=== PATIENT | male | born 1935 | race Caucasian/White ===

== ENCOUNTER → 2017-06-17 | Outpatient (CLI) | payer OTHER ==
[~2017-06-17] MED LIST: CIPROFLOXACIN500 MG PO; ECOTRIN81 MG PO; FUROSEMIDE20 MG PO; KLOR-CON 1010 MEQ PO; LOPRESSOR25 MG PO; OCUVITE1 TA1 PO; PRAVASTATIN SOD80 MG PO; XANAX0.25 MG PO
[2017-06-17 09:10] LABS: BASO % 0.4 % (0.0-1.0); EOS # 0.2 10*3/uL (0.0-0.4); EOS % 2.7 % (1.0-4.0); HEMATOCRIT 41.5 % (42.0-52.0); LYMPH # 2.6 10*3/uL (1.3-4.4); MEAN CORPUSCULAR HGB CONC 33.7 g/dl (33.0-37.0); MONO # 0.6 10*3/uL (0.1-1.0); MONO % 8.8 % (3.0-9.0); NEUT # 3.4 10*3/uL (2.3-7.9); NEUT % 49.5 % (47.0-73.0); PLATELET COUNT AUTOMATED 209 10*3/uL (130-400); RED BLOOD COUNT 4.51 10*6/uL (4.50-5.90); RED CELL DISTRI WIDTH 12.5 % (0-14.5); WHITE BLOOD COUNT 6.9 10*3/uL (4.8-10.8)
[2017-06-17 09:25] LABS: ALBUMIN 3.6 gm/dl (3.1-4.5); ALKALINE PHOSPHATASE 60 U/L (45-117); BUN 18 mg/dl (7-24); CHLORIDE 105 mmol/L (98-107); CHOLESTEROL 229 mg/dL (<200); HDL CHOLESTEROL 46 mg/dl (40-60); LDL CHOLESTEROL 155 mg/dL (9-159); POTASSIUM 4.1 mmol/L (3.5-5.1); SGOT/AST 22 IU/L (3-35); SGPT/ALT 24 U/L (12-78); SODIUM 140 mmol/L (136-145); TOTAL PROTEIN 6.9 gm/dL (6.4-8.2); TRIGLYCERIDES 141 mg/dl (<150); VLDL CHOLESTEROL 28 mg/dL (6-40)
[2017-06-17 10:23] LABS: BILIRUBIN NEGATIVE (NEGATIVE); BLOOD NEGATIVE (NEGATIVE); CLARITY SL CLOUDY (CLEAR); COLOR YELLOW (YELLOW); GLUCOSE NEGATIVE (NEGATIVE); KETONE TRACE (NEGATIVE); LEUKO ESTERASE TRACE (NEGATIVE); NITRITE POSITIVE (NEGATIVE); UROBILINOGEN 0.2 E.U./dl (0.2-1.0)
[2017-06-17 10:35] LABS: BACTERIA 2+; RBC 0-2 rbc/hpf (0-2)
== END | disposition home or self-care (01) ==
LOC: LAB 08:26
PROVIDERS: Internal Medicine
DX: Z12.5 Encounter for screening for malignant neoplasm of prostate (principal); N40.1 Benign prostatic hyperplasia with lower urinary tract symptoms; M17.11 Unilateral primary osteoarthritis, right knee; M25.461 Effusion, right knee; I25.10 Atherosclerotic heart disease of native coronary artery without angina pectoris; R53.83 Other fatigue; E78.5 Hyperlipidemia, unspecified; R41.3 Other amnesia

== ENCOUNTER → 2017-09-30 | Outpatient (CLI) | payer OTHER ==
[2017-10-01 15:08] LABS: ANTIPARIETAL CELL ANTIBODY 9.3 Units (0.0-20.0)
[2017-10-04 16:09] LABS: INTRINSIC FACTOR ABS, SERUM 4.9 AU/mL (0.0-1.1)
== END | disposition home or self-care (01) ==
LOC: LAB 11:04
PROVIDERS: Internal Medicine
DX: M62.81 Muscle weakness (generalized) (principal); E53.8 Deficiency of other specified B group vitamins

== ENCOUNTER → 2018-03-31 | Outpatient (CLI) | payer OTHER ==
[2018-03-31 10:22] LABS: BILIRUBIN NEGATIVE (NEGATIVE); BLOOD TRACE-INTACT (NEGATIVE); CLARITY SL CLOUDY (CLEAR); COLOR YELLOW (YELLOW); GLUCOSE NEGATIVE (NEGATIVE); KETONE NEGATIVE (NEGATIVE); LEUKO ESTERASE 1+ (NEGATIVE); NITRITE POSITIVE (NEGATIVE); SPECIFIC GRAVITY 1.025 (1.005-1.030); UROBILINOGEN 0.2 E.U./dl (0.2-1.0)
[2018-03-31 10:51] LABS: BACTERIA 2+
[2018-04-01 16:05] LABS: ANTIPARIETAL CELL ANTIBODY 7.6 Units (0.0-20.0)
[2018-04-04 16:08] LABS: INTRINSIC FACTOR ABS, SERUM 5.9 AU/mL (0.0-1.1)
== END | disposition home or self-care (01) ==
LOC: LAB 09:49
PROVIDERS: Internal Medicine
DX: E53.8 Deficiency of other specified B group vitamins (principal); N40.1 Benign prostatic hyperplasia with lower urinary tract symptoms; E78.5 Hyperlipidemia, unspecified; Z79.899 Other long term (current) drug therapy

== ENCOUNTER → 2018-06-30 | Outpatient (CLI) | payer OTHER ==
[2018-06-30 09:24] LABS: BILIRUBIN NEGATIVE (NEGATIVE); BLOOD NEGATIVE (NEGATIVE); CLARITY CLOUDY (CLEAR); COLOR YELLOW (YELLOW); GLUCOSE NEGATIVE (NEGATIVE); KETONE NEGATIVE (NEGATIVE); LEUKO ESTERASE NEGATIVE (NEGATIVE); NITRITE POSITIVE (NEGATIVE); UROBILINOGEN 0.2 E.U./dl (0.2-1.0)
[2018-06-30 09:32] LABS: BASO # 0.1 10*3/uL (0.0-0.1); BASO % 0.8 % (0.0-1.0); EOS # 0.3 10*3/uL (0.0-0.4); EOS % 4.5 % (1.0-4.0); HEMATOCRIT 42.2 % (42.0-52.0); HEMOGLOBIN 13.7 g/dl (14.0-18.0); LYMPH # 2.4 10*3/uL (1.3-4.4); LYMPH % 31.4 % (27.0-41.0); MEAN CELL VOLUME 95.3 fl (80.0-94.0); MEAN CORPUSCULAR HGB 30.9 pg (27.0-31.0); MEAN CORPUSCULAR HGB CONC 32.5 g/dl (33.0-37.0); MONO # 0.6 10*3/uL (0.1-1.0); MONO % 8.6 % (3.0-9.0); PLATELET COUNT AUTOMATED 203 10*3/uL (130-400); RED BLOOD COUNT 4.43 10*6/uL (4.50-5.90); RED CELL DISTRI WIDTH 12.4 % (0-14.5); WHITE BLOOD COUNT 7.5 10*3/uL (4.8-10.8)
[2018-06-30 10:03] LABS: ALBUMIN 3.7 gm/dl (3.1-4.5); BUN 18 mg/dl (7-24); CHLORIDE 104 mmol/L (98-107); CHOLESTEROL 182 mg/dL (<200); POTASSIUM 4.1 mmol/L (3.5-5.1); SODIUM 140 mmol/L (136-145)
[2018-06-30 10:14] LABS: ALKALINE PHOSPHATASE 63 U/L (45-117); CREATININE 1.02 mg/dL (0.70-1.30); HDL CHOLESTEROL 45 mg/dl (40-60); LDL CHOLESTEROL 107 mg/dL (9-159); SGOT/AST 24 IU/L (3-35); SGPT/ALT 31 U/L (12-78); TRIGLYCERIDES 148 mg/dl (<150); VLDL CHOLESTEROL 30 mg/dL (6-40)
[2018-06-30 10:30] LABS: BACTERIA 3+
== END | disposition home or self-care (01) ==
LOC: LAB 08:55
PROVIDERS: Internal Medicine
DX: I25.10 Atherosclerotic heart disease of native coronary artery without angina pectoris (principal); I10 Essential (primary) hypertension; E78.5 Hyperlipidemia, unspecified

== ENCOUNTER → 2019-01-26 | Outpatient (CLI) | payer OTHER ==
[2019-01-26 10:50] LABS: CHOLESTEROL 183 mg/dL (<200); HDL CHOLESTEROL 44 mg/dl (40-60); LDL CHOLESTEROL 116 mg/dL (9-159); TRIGLYCERIDES 117 mg/dl (<150); VLDL CHOLESTEROL 23 mg/dL (6-40)
== END | disposition home or self-care (01) ==
LOC: LAB 08:47
PROVIDERS: Internal Medicine
DX: E11.9 Type 2 diabetes mellitus without complications (principal); I25.10 Atherosclerotic heart disease of native coronary artery without angina pectoris

== ENCOUNTER → 2019-11-03 | Outpatient (CLI) | payer OTHER ==
[2019-11-03 10:17] LABS: BASO # 0.1 10*3/uL (0.0-0.1); BASO % 0.7 % (0.0-1.0); EOS # 0.2 10*3/uL (0.0-0.4); EOS % 2.8 % (1.0-4.0); HEMATOCRIT 43.6 % (42.0-52.0); HEMOGLOBIN 13.9 g/dl (14.0-18.0); LYMPH # 2.2 10*3/uL (1.3-4.4); MEAN CELL VOLUME 96.2 fl (80.0-94.0); MEAN CORPUSCULAR HGB 30.7 pg (27.0-31.0); MEAN CORPUSCULAR HGB CONC 31.9 g/dl (33.0-37.0); MEAN PLATELET VOLUME 9.1 fl (9.6-12.3); MONO # 0.7 10*3/uL (0.1-1.0); MONO % 9.1 % (3.0-9.0); NEUT # 4.2 10*3/uL (2.3-7.9); NEUT % 56.9 % (47.0-73.0); PLATELET COUNT AUTOMATED 207 10*3/uL (130-400); RED BLOOD COUNT 4.53 10*6/uL (4.50-5.90); RED CELL DISTRI WIDTH 12.3 % (0-14.5); WHITE BLOOD COUNT 7.5 10*3/uL (4.8-10.8)
[2019-11-03 10:41] LABS: ALBUMIN 3.7 gm/dl (3.1-4.5); ALKALINE PHOSPHATASE 69 U/L (45-117); BUN 16 mg/dl (7-24); CHLORIDE 106 mmol/L (98-107); CHOLESTEROL 162 mg/dL (<200); CREATININE 1.03 mg/dL (0.70-1.30); HDL CHOLESTEROL 54 mg/dl (40-60); LDL CHOLESTEROL 78 mg/dL (9-159); POTASSIUM 3.8 mmol/L (3.5-5.1); SGOT/AST 21 IU/L (3-35); SGPT/ALT 26 U/L (12-78); SODIUM 140 mmol/L (136-145); TOTAL PROTEIN 7.1 gm/dL (6.4-8.2); TRIGLYCERIDES 149 mg/dl (<150); VLDL CHOLESTEROL 30 mg/dL (6-40)
== END | disposition home or self-care (01) ==
LOC: LAB 09:34
PROVIDERS: Internal Medicine
DX: Z12.5 Encounter for screening for malignant neoplasm of prostate (principal); I10 Essential (primary) hypertension; E11.9 Type 2 diabetes mellitus without complications; E78.49 Other hyperlipidemia

== ENCOUNTER 2020-03-18 14:40 | Emergency (ER) | payer OTHER ==
[~2020-03-18] VITALS: Ht 182.8 cm; Wt 81.6 kg
[2020-03-18 14:57] VITALS: BP 141/80
[2020-03-18 15:33] LABS: BASO # 0.1 10*3/uL (0.0-0.1); BASO % 0.7 % (0.0-1.0); EOS # 0.1 10*3/uL (0.0-0.4); EOS % 1.3 % (1.0-4.0); HEMATOCRIT 44.6 % (42.0-52.0); LYMPH # 1.4 10*3/uL (1.3-4.4); MEAN CELL VOLUME 92.9 fl (80.0-94.0); MEAN CORPUSCULAR HGB 30.4 pg (27.0-31.0); MEAN CORPUSCULAR HGB CONC 32.7 g/dl (33.0-37.0); MEAN PLATELET VOLUME 9.2 fl (9.6-12.3); MONO # 0.5 10*3/uL (0.1-1.0); MONO % 7.6 % (3.0-9.0); NEUT # 4.9 10*3/uL (2.3-7.9); NEUT % 69.8 % (47.0-73.0); PLATELET COUNT AUTOMATED 211 10*3/uL (130-400); RED CELL DISTRI WIDTH 12.2 % (0-14.5)
[2020-03-18 15:44] LABS: ACT PARTIAL THROMBO TIME 26.9 SECONDS (20.0-32.1)
[2020-03-18 15:49] LABS: ALBUMIN 3.8 gm/dl (3.1-4.5); ALKALINE PHOSPHATASE 59 U/L (45-117); BUN 18 mg/dl (7-24); CHLORIDE 108 mmol/L (98-107); CREATININE 1.11 mg/dL (0.70-1.30); LIPASE 51 U/L (73-393); POTASSIUM 3.8 mmol/L (3.5-5.1); SGOT/AST 15 IU/L (3-35); SGPT/ALT 21 U/L (12-78); SODIUM 140 mmol/L (136-145); TOTAL PROTEIN 7.4 gm/dL (6.4-8.2)
[2020-03-18 15:54] LABS: TROPONIN I < 0.015 ng/ml (<0.045)
== END 2020-03-18 16:41 | disposition left against medical advice (07) ==
LOC: ED 14:40
PROVIDERS: Emergency Medicine
DX: R07.89 Other chest pain (principal); R13.10 Dysphagia, unspecified; I25.10 Atherosclerotic heart disease of native coronary artery without angina pectoris; I25.2 Old myocardial infarction; I10 Essential (primary) hypertension; Z88.2 Allergy status to sulfonamides; Z79.899 Other long term (current) drug therapy; Z79.82 Long term (current) use of aspirin

== ENCOUNTER 2020-03-27 23:15 | Emergency (ER) | payer OTHER ==
[~2020-03-27] VITALS: Ht 182.8 cm
[2020-03-27 23:21] VITALS: BP 177/84
[2020-03-28 00:22] LABS: BASO % 0.5 % (0.0-1.0); EOS # 0.1 10*3/uL (0.0-0.4); EOS % 1.5 % (1.0-4.0); HEMATOCRIT 44.6 % (42.0-52.0); LYMPH # 1.8 10*3/uL (1.3-4.4); LYMPH % 21.9 % (27.0-41.0); MEAN CELL VOLUME 90.3 fl (80.0-94.0); MEAN CORPUSCULAR HGB 30.4 pg (27.0-31.0); MEAN CORPUSCULAR HGB CONC 33.6 g/dl (33.0-37.0); MEAN PLATELET VOLUME 9.2 fl (9.6-12.3); MONO # 0.8 10*3/uL (0.1-1.0); MONO % 9.3 % (3.0-9.0); NEUT # 5.4 10*3/uL (2.3-7.9); NEUT % 66.1 % (47.0-73.0); PLATELET COUNT AUTOMATED 219 10*3/uL (130-400); RED BLOOD COUNT 4.94 10*6/uL (4.50-5.90); WHITE BLOOD COUNT 8.1 10*3/uL (4.8-10.8)
[2020-03-28 00:33] LABS: ACT PARTIAL THROMBO TIME 26.6 SECONDS (20.0-32.1); INTERNATIONAL NORM RATIO 1.1 (2.0-3.5)
[2020-03-28 00:39] LABS: ALBUMIN 3.9 gm/dl (3.1-4.5); BUN 20 mg/dl (7-24); CHLORIDE 109 mmol/L (98-107); CREATININE 1.08 mg/dL (0.70-1.30); LIPASE 53 U/L (73-393); POTASSIUM 3.2 mmol/L (3.5-5.1); SGOT/AST 24 IU/L (3-35); SGPT/ALT 28 U/L (12-78); SODIUM 139 mmol/L (136-145); TOTAL PROTEIN 7.5 gm/dL (6.4-8.2)
[2020-03-28 00:40] LABS: ALKALINE PHOSPHATASE 54 U/L (45-117)
[2020-03-28] MEDS ORDERED: AMINOPHYLLIN200 MG PO (02:28)
[2020-03-28] MEDS ORDERED: TESSALON PERLE100 M1 PO (02:30)
== END 2020-03-28 03:27 | disposition home or self-care (01) ==
LOC: ED 23:15 → EDHOLD 03-28 02:36 → ED 03-28 03:27
PROVIDERS: Nurse Practitioner Family
DX: J32.9 Chronic sinusitis, unspecified (principal); R79.1 Abnormal coagulation profile; I25.10 Atherosclerotic heart disease of native coronary artery without angina pectoris; I10 Essential (primary) hypertension; I25.2 Old myocardial infarction; Z88.2 Allergy status to sulfonamides; Z79.899 Other long term (current) drug therapy; Z79.82 Long term (current) use of aspirin

== ENCOUNTER 2020-04-01 20:50 | Inpatient (IN) | payer OTHER ==
[~2020-04-01] VITALS: Ht 180.3 cm; Wt 96.6 kg
[~2020-04-01 20:50] MED LIST changes: +AMINOPHYLLIN200 MG PO; +TESSALON PERLE100 M1 PO
[2020-04-01 21:03] VITALS: BP 116/91
--- NOTE | 2020-04-01 21:19 | NUR ---
Son in with pt at this time.Son is doing most of the talking at this time and states he does not live with him.
[2020-04-01 21:57] LABS: BASO # 0.1 10*3/uL (0.0-0.1); BASO % 0.6 % (0.0-1.0); EOS # 0.1 10*3/uL (0.0-0.4); HEMATOCRIT 44.4 % (42.0-52.0); LYMPH # 1.8 10*3/uL (1.3-4.4); LYMPH % 22.8 % (27.0-41.0); MEAN CELL VOLUME 90.8 fl (80.0-94.0); MEAN CORPUSCULAR HGB 30.7 pg (27.0-31.0); MEAN CORPUSCULAR HGB CONC 33.8 g/dl (33.0-37.0); MEAN PLATELET VOLUME 9.2 fl (9.6-12.3); MONO # 0.7 10*3/uL (0.1-1.0); MONO % 9.3 % (3.0-9.0); NEUT # 5.2 10*3/uL (2.3-7.9); NEUT % 65.7 % (47.0-73.0); PLATELET COUNT AUTOMATED 211 10*3/uL (130-400); RED BLOOD COUNT 4.89 10*6/uL (4.50-5.90); RED CELL DISTRI WIDTH 12.2 % (0-14.5); WHITE BLOOD COUNT 7.9 10*3/uL (4.8-10.8)
[2020-04-01 22:13] VITALS: BP 134/86
[2020-04-01 22:15] LABS: ALBUMIN 4.1 gm/dl (3.1-4.5); ALKALINE PHOSPHATASE 54 U/L (45-117); BUN 24 mg/dl (7-24); CHLORIDE 106 mmol/L (98-107); CREATININE 1.39 mg/dL (0.70-1.30); LIPASE 100 U/L (73-393); POTASSIUM 3.3 mmol/L (3.5-5.1); SGOT/AST 28 IU/L (3-35); SGPT/ALT 36 U/L (12-78); SODIUM 140 mmol/L (136-145); TOTAL PROTEIN 7.8 gm/dL (6.4-8.2)
[2020-04-01 22:17] LABS: TROPONIN I < 0.015 ng/ml (<0.045)
--- NOTE | 2020-04-01 22:20 | NUR ---
Pt states he was unable to void.Pt was able to drink water and did not cough after.Pt did spit into cup 30 seconds after though.
--- NOTE | 2020-04-01 23:39 | NUR ---
Per she wants son in room at this time.
--- NOTE | 2020-04-01 23:47 | NUR ---
in to speak with son and pt at this time.
[2020-04-01 23:59] VITALS: BP 131/87
[2020-04-02] VITALS (7 sets, daily range): BP systolic 116–154; BP diastolic 67–81
[2020-04-02 01:30] LABS: BILIRUBIN NEGATIVE (NEGATIVE); BLOOD NEGATIVE (NEGATIVE); CLARITY CLEAR (CLEAR); COLOR YELLOW (YELLOW); GLUCOSE NEGATIVE (NEGATIVE); KETONE 2+ (NEGATIVE); LEUKO ESTERASE NEGATIVE (NEGATIVE); NITRITE NEGATIVE (NEGATIVE); SPECIFIC GRAVITY 1.025 (1.005-1.030); UROBILINOGEN 0.2 E.U./dl (0.2-1.0)
--- NOTE | 2020-04-02 02:30 | NUR ---
Time: 229 A 85 year old MALE admitted to 5E under services of TARI MCCRACKEN DO. Pt. arrived via CART from ER. Chief complaint: MULTIPLE COMPLAINTS. DAKOTAH GAVIRIA
--- NOTE | 2020-04-02 04:04 | NUR ---
Dr. TRINIDAD consulted for DYSPHAGIA. DAKOTAH GAVIRIA
--- NOTE | 2020-04-02 07:42 | NUR ---
PHYSICAL THERAPY Screen and PT eval received will follow thank you Nova rDew PT
--- NOTE | 2020-04-02 08:23 | NUR ---
Nursing screen and OT evaluation received. Will follow up with patient. Thank you. Tamiko Morton OTR/L
[2020-04-02] MEDS ORDERED: CARDURA1 M1 PO (09:21)
[2020-04-02] MEDS ORDERED: PROTONIX40 MG PO (09:23)
[2020-04-02] MEDS ORDERED: AMINOPHYLLIN200 MG PO (09:25)
--- NOTE | 2020-04-02 11:12 | NUR ---
PATIENT C/O PAIN AT INFUSION SITE AND UP ARM FOR GAYLE. DR. VIGNESH BRENNAN TO STOP INFUSION.
[2020-04-02] MEDS ORDERED: GLUCOPHAGE500 M1 PO (11:39)
[2020-04-02] MEDS ORDERED: PROSCAR5 M1 PO ×2 (11:41→11:43)
[2020-04-02] MEDS ORDERED: B121000 MCG/1 IM (11:44)
--- NOTE | 2020-04-02 11:50 | NUR ---
PHYSICAL THERAPY Attempted to see pt for evaluation out of room for procedure, EGD will follow Nova Drew PT
--- NOTE | 2020-04-02 14:05 | NUR ---
Occupational Therapy evaluation completed on 5E with full evaluation to follow. Recommend occupational therapy per plan of care and SNF upon discharge. Thank you for this referral. Tamiko Morton OTR/L
--- NOTE | 2020-04-02 14:29 | NUR ---
Physical Therapy evaluation completed on 5th floor with full evaluation to follow. Recommend physical therapy per plan of care and SNF upon discharge. Thank you for this referral. Nova Drew PT
--- NOTE | 2020-04-02 16:52 | NUR ---
Speech Pathology Speech therapy consulted on this date for patient, Frank, due to c/o swallowing difficulties and feeling of food "getting stuck" in esophagus. Patient seen for EGD procedure on this date. Results significant for residue in esophagus and stricture in distal esophagus. Patient on NPO status. Speech therapist consulted with nurse to determine if consult with speech therapy still needed following finding of esophageal stricture in EGD. Nurse stated she would update speech therapy. Hamida Rome M.S., CCC-CLOTH PRINTING BACK TENDER
--- NOTE | 2020-04-02 20:40 | NUR ---
CALLED DR. TRINIDAD TO CLARIFY ORDERS. NOTIFIED HIM OF PATIENTS ESOPHAGRAM RESULTS. STATED TO KEEP PATIENT NPO AND ORDER EGD FOR WEDNESDAY 04/04. ORDER D5 1/ NS @100ML/HR. NO OTHER ORDERS RECEIVED. WILL CONTINUE TO MONITOR.
--- NOTE | 2020-04-02 21:55 | NUR ---
PATIENT SLEEPING, WOKEN UP TO HANG FLUIDS AND ASSESSMENT. PATIENT DISORIENTED TO TIME AND PLACE. BELIEVES HE IS AT [facility]. ABLE TO REORIENT. D51/2NS HUNG AND INFUSING AT 100ML/HR. PATIENT VOICES NO COMPLAINTS AT THIS TIME. RESPIRATIONS EASY, NON LABORED. BED IN LOWEST POSITION,CALL LIGHT WITHIN REACH. BED ALARM ON. WILL CONTINUE TO MONITOR.
[2020-04-03] VITALS: BP 165/79
--- NOTE | 2020-04-03 | NUR ---
PATIENT SLEEPING, NO SIGNS OF DISTRESS. RESPIRATIONS EASY, NON LABORED. IV FLUIDS INFUSING. BED IN LOWEST POSITION,CALL LIGHT WITHIN REACH.BED ALARM ON. WILL CONTINUE TO MONITOR.
--- NOTE | 2020-04-03 07:30 | NUR ---
PT RESTING IN BED. VOICES NO CONCERNS AT THIS TIME. RESPS EASY AND NON LABORED. NO S/S OF DISTRESS NOTED. VSS. WHITE BOARD UPDATED. POC DISCUSSED W PT. MILD CONFUSION @ X'S. WILL CONTINUE TO MONITOR. CALL LIGHT WITHIN REACH. BED ALARM ON.
[2020-04-03 07:40] LABS: BUN 16 mg/dl (7-24); CHLORIDE 111 mmol/L (98-107); CREATININE 0.84 mg/dL (0.70-1.30); POTASSIUM 3.1 mmol/L (3.5-5.1); SODIUM 143 mmol/L (136-145)
[2020-04-03 07:50] LABS: BASO % 0.6 % (0.0-1.0); EOS # 0.2 10*3/uL (0.0-0.4); EOS % 2.8 % (1.0-4.0); HEMATOCRIT 41.6 % (42.0-52.0); LYMPH # 1.2 10*3/uL (1.3-4.4); LYMPH % 17.1 % (27.0-41.0); MEAN CELL VOLUME 92.4 fl (80.0-94.0); MEAN CORPUSCULAR HGB 30.4 pg (27.0-31.0); MEAN CORPUSCULAR HGB CONC 32.9 g/dl (33.0-37.0); MEAN PLATELET VOLUME 9.6 fl (9.6-12.3); MONO # 0.7 10*3/uL (0.1-1.0); MONO % 10.7 % (3.0-9.0); NEUT # 4.6 10*3/uL (2.3-7.9); NEUT % 68.1 % (47.0-73.0); PLATELET COUNT AUTOMATED 202 10*3/uL (130-400); RED CELL DISTRI WIDTH 12.2 % (0-14.5); WHITE BLOOD COUNT 6.8 10*3/uL (4.8-10.8)
[2020-04-03 08:00] VITALS: BP 159/60
--- NOTE | 2020-04-03 10:25 | NUR ---
PHYSICAL THERAPY Patient seen this am 1:1 for therapy visit and was resting supine in bed upon therapist arrival. Patient identified by name / and presented with a little increased confusion. Patient transfers supine to sit EOB with MIN A, tolerating a minute or so of static EOB sit to collect himself. Patient completed sit to stand transfer, MIN A, slow initial rise with use of wh walker standing support. Patient ambulated 40'x 1, wh walker, CGA, demonstrating slow, cautious gait pattern and was very unsteady during all 90/180 tunrs. Patient also had several bouts of "freezing" episodes during gait ex, needing v/c to correct as patient demonstrates smoother laurie while leading with initial R LE. Patient returned to bedside chair and remained with call light, tray table, telephone and body alarm for safety. Will continue per POC as tolerated, total treatment time 14 minutes. Kavon Castelan, BITUMASTIC APPLIER
--- NOTE | 2020-04-03 10:34 | NUR ---
OT NOTE Pt was seen this A.M. 1:1 for 20 minute OT session. Upon arrival pt was supine in bed. Pt identified by name and and had no complaints at this time. Pt transferred supine to sit EOB with CGA. While sitting EOB pt donned B socks with SBA. Sit to stand completed from bed level with CGA and use of w/w for UE support. Educated pt on proper hand placement for increased I and improved technique. Challenged pt's static standing tolerance needed for increased I in self care tasks and functional transfers, pt was able to tolerate aprox 4 minutes at a time before sitting due to fatigue. Functional mobility was then completed to the bathroom with CGA and use of w/w with verbal prompts throughout for walker safety which pt presented with fair carry over. Pt transferred on/off standard commode with CGA and use of grab bar for UE support. He then stood sink side while washing his hands with CGA for safety. Challenged pt's dynamic standing balance while weight shifting, crossing midline, and reaching over all planes and pt was able to maintain F- standing balance throughout. Functional mobility was completed back to the recliner with CGA and use of w/w where he was left with call light in hand, tray table in place, and body alarm activated for safety. Continue with rec D/C plan to SNF. UBALDO Rodriges/Roland
[2020-04-03 12:00] VITALS: BP 117/64
--- NOTE | 2020-04-03 12:46 | NUR ---
PATIENTS SON CONTACTED FOR PHONE CONSENT FOR EGD PROCEDURE TOMORROW. VERIFIED BY 2 RN'S. PT HAS PERIODS OF CONFUSION.
--- NOTE | 2020-04-03 13:49 | NUR ---
SPEECH PATHOLOGY Clinical swallowing evaluation completed as per orders. Patient was admitted with dysphagia, after experiencing 3-4 weeks of difficulty swallowing food and liquids. Further history includes anxiety, GERD, DM and HTN. He is s/p CABG. Patient is currently ordered clear liquids. He will be NPO tomorrow for EGD for tissue biopsy due to possible CA. Esophagram yesterday revealed severe stricture in distal esophagus, debris filled esophagus and underlying mass within debris is not ruled out. For assessment patient was alert and cooperative but confusion was displayed. Oral peripheral exam revealed natural teeth with backs missing. Lingual/labial and buccal skills were WNL in terms of strength, ROM and coordination. He was only assessed with liquid (water via cup.) Patient swallowed sips of water with a timely swallow and no cough or wet vocal quality. After the second sip of water, he began to expel thick phlegm. This occurred several times. Assessment was terminated at this point. Patient reported that it felt like the water was sticking and pointed to his mid-sternal area. His difficulties appear to be esophageal in nature and he will undergo EGD tomorrow. Recommend NPO at this time. Will monitor patient's status follow procedure tomorrow and follow up as appropriate. Results and jesse. were shared with patient and his nurse and they verbalized understanding. Refer to report in [facility] for further information. Thank you for this referral. TRUONG TEJADA MSCCC-LIP CUTTER
--- NOTE | 2020-04-03 14:30 | NUR ---
Electric Shipyard Operator in to talk to patient. Patient states lives at HOME with ALONE. There are FEW steps in the home. Physician: KISHA Pharmacy: [facility] [place] [facility] services: NONE Patient's level of ADLs: INDEPENDENT Patient has working utilities: YES DME: HAS A CANE HE USES, HAS A WALKER IF HER NEEDS IT BUT DOES NOT USE IT NOW Follow-up physician's appointment after d/c: WILL BE MADE BY HOSPITALIST NURSE DIRECTOR ON DISCHARGE Does patient want to access PORTAL?: NO Discharge plan PT LIVES AT HOME ALONE AND IS INDEPENDENT IN HIS CARE. STATES HE DRIVES AND IS ABLE TO COMPLETE ALL HIS WORK AT HOME. STATES HE USES A CANE WHEN HE GOES OUT OF HIS HOUSE. STATES HE ALSO HAS A WALKER IF HER WOULD NEED IT BUT DOES NOT USE IT NOW. PLAN IS TO RETURN HOME WHEN MEDICALLY STABLE. TALKED TO PT ABOUT SNF OR HH AND HE REFUSES BOTH. STATE IF I NEED HELP MY SON OR DAUGHTER WILL HELP ME. . BRITTNEY VELA
--- NOTE | 2020-04-03 14:48 | NUR ---
PT RESTING IN CHAIR. VOICES NO CONCERNS AT THIS TIME. RESPS EASY AND NON LABORED. NO S/S OF DISTRESS. VSS. IVF AND KCL INFUSING W/O INCIDENT. NO FURTHER EPISODES OF VOMITING NOTED.
[2020-04-03 16:00] VITALS: BP 161/80
--- NOTE | 2020-04-03 16:53 | NUR ---
ATTEMPING TO REACH DR [facility] REGARDING PRESSURE OF 160/80. WILL TRY AGAIN
--- NOTE | 2020-04-03 17:20 | NUR ---
5MG IV LOPRESSOR GIVEN. WILL CONTINUE TO MONITOR.
--- NOTE | 2020-04-03 18:15 | NUR ---
PTS BP IS NOW 147/67
[2020-04-03 18:29] VITALS: BP 147/67
[2020-04-03 20:00] VITALS: BP 139/63
--- NOTE | 2020-04-03 22:59 | NUR ---
PATIENT BECOMING VERY ANXIOUS, SET OF BED ALARM. ATTEMPTING TO GET DRESSED AND LEAVE. PATIENT UNABLE TO TAKE XANEX DUE TO NOT BEING ABLE TO SWALLOW. NOTIFIED DR. NEVAREZ. 0.5MG IV ATIVAN ORDERED NOW.
--- NOTE | 2020-04-03 23:25 | NUR ---
PATIENT MEDICATED AT THIS TIME WITH IV ATIVAN. WILL CHECK EFFECTIVENESS.
[2020-04-04] VITALS (10 sets, daily range): BP systolic 115–172; BP diastolic 69–84
--- NOTE | 2020-04-04 00:30 | NUR ---
PATIENT SLEEPING, ATIVAN EFFECTIVE.
--- NOTE | 2020-04-04 01:15 | NUR ---
PATIENT SET BED ALARM OFF, NEEDING TO PEE. VERY UNSTEADY, DISORIENTED. HELPED ASSIST WITH URINAL. PATIENT HELPED BACK INTO BED. BED IN LOWEST POSITION,CALL LIGHT WITHIN REACH. HOB 30 DEGREES. BED ALARM ON. WILL CONTINUE TO MONITOR.
--- NOTE | 2020-04-04 01:32 | NUR ---
OT NOTE Pt seen this P.M. 1:1 for 16 min session. Upon arrival pt seated at EOB and identified by name and . Pt has no complaints of pain at this time. Pt presented to therapy w poor command follow and slow processing requiring constant verbal cues for direction. Noted pt impulsive this date requiring verbal cues for safety. He stood from bed level w use of ww and CGA followed by functional mobility to the bathroom w use of ww and CGA. Pt demonstrated poor ww safety by picking up ww and reaching out too far in front of him requiring verbal/ tactile cues to correct w poor carry over. Pt transferred on/off standard commode w use of ww, grab bars and CGA and took aprox 3 min rest break seated on commode. He then washed his hands standing at sink w verbal cues provided for bringing the ww all the way up to the sink and to step up to the sink w fair followthrough. Functional mobility completed back to bed w verbal cues provided for safety w ww during turns to not forklift picker ww and stay standing close to ww w poor carry over. He returned to seated at EOB w use of ww and CGA demonstrating poor hand placement resulting in education for technique and safety for transfers. Pt stood w use of ww and CGA. Challanged pts dynamic standing balance needed to increase I in ADLs, functional mobility and transfers by reaching, crossing midline and weight shifting w use of ww and CGA demonstrating F- dynamic standing balance w one retrograde loss of balance requiring Min A to correct. Pt returned to seated w use of ww and CGA demonstrating poor technique and hand placement resulting in education provided fo transfer safety. He then completed multiple sit <> stands to correct technique w fair carry over. At end of session pt seated at EOB w bed alarm activated and call light in reach. Continue w current D/C to SNF. Raman Ghotra/UBALDO Cohen/Roland
--- NOTE | 2020-04-04 04:20 | NUR ---
PATIENT WOKE UP OUT OF SLEEP, SPITTING UP. BED CHANGED AT THIS TIME. PATIENT VOICES NO COMPLAINTS. IV FLUIDS INFUSING. BED IN LOWEST POSITION, HOB LOCKED AT 30 DEGREES BED ALARM ON, BED RAILS X2 UP. WILL CONTINUE TO MONITOR.
[2020-04-04 06:46] LABS: BASO % 0.6 % (0.0-1.0); EOS # 0.3 10*3/uL (0.0-0.4); EOS % 3.8 % (1.0-4.0); HEMATOCRIT 40.6 % (42.0-52.0); LYMPH # 1.2 10*3/uL (1.3-4.4); LYMPH % 17.6 % (27.0-41.0); MEAN CELL VOLUME 93.8 fl (80.0-94.0); MEAN CORPUSCULAR HGB 30.7 pg (27.0-31.0); MEAN CORPUSCULAR HGB CONC 32.8 g/dl (33.0-37.0); MEAN PLATELET VOLUME 9.8 fl (9.6-12.3); MONO # 0.7 10*3/uL (0.1-1.0); MONO % 10.4 % (3.0-9.0); NEUT # 4.6 10*3/uL (2.3-7.9); PLATELET COUNT AUTOMATED 190 10*3/uL (130-400); RED BLOOD COUNT 4.33 10*6/uL (4.50-5.90); RED CELL DISTRI WIDTH 12.4 % (0-14.5); WHITE BLOOD COUNT 6.8 10*3/uL (4.8-10.8)
[2020-04-04 07:13] LABS: BUN 10 mg/dl (7-24); CHLORIDE 110 mmol/L (98-107); CREATININE 0.79 mg/dL (0.70-1.30); POTASSIUM 3.3 mmol/L (3.5-5.1); SODIUM 143 mmol/L (136-145)
--- NOTE | 2020-04-04 08:40 | NUR ---
PT OFF FLOOR TO OR VIA BED FOR EGD.
--- NOTE | 2020-04-04 09:28 | NUR ---
OT NOTE Attempted to see pt this A.M. Upon arrival pt out of room for medical procedure. Will check back at later date/ time. Continue w POC as able. Charlotte Fleming. S/UBALDO Cohen/Roland
--- NOTE | 2020-04-04 13:10 | NUR ---
PHYSICAL THERAPY Patient seen this pm 1;1 for therapy visit and was sitting up on EOB upon therapist arrival. Patient identified by name / and reports no new c/o's at this time. Patient also presented with several bouts of increased confusion, requring multiple v/c's to safely complete all therapy task this session. Patient performed sit to stand transfer, MIN A, needing v/c for proper hand placement, then ambulated with use of wh walker, 20'x 1 to bathroom, then additional 40'x1, wh walker, CGA, demonstrating POOR walker safety / navigation. Patient needed v/c to improve safe step sequence during 180 degree turns and demonstrated "step to" gait pattern. Patient returned to EOB sit and remained with call light, tray table, telephone and bed alarm for safety. Will continue per POC as tolerated, total treatment time 17 minutes. Kavon Castelan, CONICAL MIXER
--- NOTE | 2020-04-04 13:30 | NUR ---
PT RETURNED FROM OR VIA BED. VOICES NO NEEDS AT THIS TIME. CALL LIGHT IN REACH.ALARM INTACT. CALL LIGHT IN REACH.
--- NOTE | 2020-04-04 13:59 | NUR ---
SPEECH PATHOLOGY Patient remains NPO. Scheduled EGD for today was not able to be completed due to vomiting. Plan is to attempt EGD again tomorrow. Will continue to monitor patient's status and proceed as appropriate. TRUONG TEJADA MSCCC-CLAIMS REPRESENTATIVE
--- NOTE | 2020-04-04 15:26 | NUR ---
NOTIFIED DR STAUFFER THAT PT STILL UNABLE TO TAKE HOME MEDS OR ANY ORAL MEDICATION ORDERED.PER CT SCAN SPECIAL PROCEDURES TECHNOLOGIST PT WAS UNABLE TO COMPLETE EGD. REQUESTING IV MEDICATIONS.
--- NOTE | 2020-04-04 18:03 | NUR ---
SPOKE WITH FAMILY REGARDING PT CARE AND NOT BEING ABLE TO SPEAK WITH ANYONE. I ADVISED I WOULD CONTACT SURGEON AND MAKE SURE I UPDATED THEM ON PLAN OF CARE FOR PT.NOTIFIED DR TRINIDAD AND HE RETURNED CALL TO FAMILY.
--- NOTE | 2020-04-04 20:20 | NUR ---
RESIDENT CALLED FOR MED CHANGE FROM PO TO IV
--- NOTE | 2020-04-04 23:29 | NUR ---
right hand IV discontioned left hand and arm edematoud. Pressure applied. Sterile dressing applied. will continue to monitor. NARENDRA GIFFORD
--- NOTE | 2020-04-04 23:37 | NUR ---
IV started left antecubital with #20 protective cath after 1 attempts. Site prepped with Chloroprep. Sterile dressing applied. Patient tolerated procedure well. IV infusing at 40 cc/hr. NARENDRA GIFFORD
[2020-04-05] VITALS (11 sets, daily range): BP systolic 113–170; BP diastolic 71–89
[2020-04-05 06:48] LABS: BASO % 0.5 % (0.0-1.0); EOS # 0.2 10*3/uL (0.0-0.4); EOS % 3.5 % (1.0-4.0); HEMATOCRIT 41.6 % (42.0-52.0); LYMPH # 1.1 10*3/uL (1.3-4.4); LYMPH % 19.2 % (27.0-41.0); MEAN CELL VOLUME 92.7 fl (80.0-94.0); MEAN CORPUSCULAR HGB 30.5 pg (27.0-31.0); MEAN CORPUSCULAR HGB CONC 32.9 g/dl (33.0-37.0); MEAN PLATELET VOLUME 9.8 fl (9.6-12.3); MONO # 0.6 10*3/uL (0.1-1.0); MONO % 10.1 % (3.0-9.0); NEUT # 3.8 10*3/uL (2.3-7.9); PLATELET COUNT AUTOMATED 198 10*3/uL (130-400); RED BLOOD COUNT 4.49 10*6/uL (4.50-5.90); RED CELL DISTRI WIDTH 12.6 % (0-14.5); WHITE BLOOD COUNT 5.7 10*3/uL (4.8-10.8)
[2020-04-05 07:06] LABS: BUN 6 mg/dl (7-24); CHLORIDE 110 mmol/L (98-107); CREATININE 0.76 mg/dL (0.70-1.30); SODIUM 143 mmol/L (136-145)
--- NOTE | 2020-04-05 07:46 | NUR ---
PT OFF FLOOR VIA BED TO OR FOR EGD WITH .
--- NOTE | 2020-04-05 09:13 | NUR ---
OT NOTE Attempted to see pt this A.M. Upon arrival pt out of room for medical procedure. Will check back again at later time/ date. Continue w POC as able. Raman Ghotra/UBALDO Cohen/Roland
--- NOTE | 2020-04-05 12:18 | NUR ---
TALKED WITH PT SON ARNEL ABOUT SNF CARE OR HOME HEALTH. HE STATES HE SISTER IS ON HER WAY HERE FROM [facility] AND THEY WOULD LIKE TO COME IN AND SEE THEIR FATHER AND DISCUSS HIS WISHES WITH HIM. STATES HE THINKS HIS DAD WILL CHOOSE TO GO HOME WITH HOSPICE AND NO TREATMENT BUT STILL WANTS TO TALK WITH HIM AND DOCTOR. SON SAID HE JUST LOST A BROTHER IN LAW IN A FACILITY TO COVID AND HE DOES NOT WANT HIS FATHER TO GO TO A FACILITY. WILL CONTINUE TO FOLLOW.
--- NOTE | 2020-04-05 12:55 | NUR ---
PHYSICAL THERAPY Patient seen this pm 1;1 for therapy visit and was resting supine in bed upon therapist arrival. Patient identified by name / and presented with IV treatment. Patient reports feeling a bit tired due to am medical testing and being NPO since las night, but otherwise was very pleasant. Patient transfers supine to sit EOB with MIN A, then performed sit to stand, CGA, use of walker standing support, tolerting 1-2 minutes static stand CGA x 1. Patient needed v/c for proper hand placement during transfers and was also able to ambulate 40'x 1, wh walker, CGA. Patient demonstrated slow, "step to" laurie, needing v/c to improve standing posture to avoid "over reaching" during walker navigation. Patient also very cautious during 180 degree turns and returned to supine in bed with increased fatigue. Patient remained in bed with call light,tray table, telephone and bed alarm for safety. Will continue per POC as tolerated, total treatment time 16 minutes. Kavon Castelan, MOLDING SANDER
--- NOTE | 2020-04-05 13:05 | NUR ---
OT NOTE Pt seen this date 1:1 for 18 min session. Upon arrival pt supine in bed w bed alarm activated and had complaints of feeling "tired and weak from my test this morning". Pt identified by name and . Bed mobility completed from supine in bed to seated at EOB w SBA and head of bed slightly elevated. Sit to stand completed from bed level w use of ww and CGA. Pt stood for aprox 2 min w use of ww and CGA before returning to seated at EOB w use of ww and CGA d/t sudden onset of fatigue. He took a 1 min rest break w SBA followed by another sit to stand from bed level w use of ww and CGA. Challlenged pts dynamic standing balance needed to increase I in ADLs, functional mobility and transfers by reaching, crossing midline, and weight shifting w use of ww and CGA demonstrating F- dynamic standing balance. Functional mobility completed to bathroom and back w use of ww and CGA w verbal cues provided for ww mgmt/ safety to not warehouse picker ww and maintain appropriate distance from ww w fair follow through. Pt returned to seated at EOB w use of ww and CGA w poor hand placement which pt self corrected and proceeded to practice multiple sit to stands w use of ww and CGA to practice technique w 65% carry over. He then returned to supine in bed w SBA. At end of session pt supine in bed w bed alarm activated, call light in reach and bedside table in place. Continue w current D/C to SNF. Raman Ghotra/UBALDO Cohen/Roland
--- NOTE | 2020-04-05 13:51 | NUR ---
PHYSICAL THERAPY CO-SIGN I approve of the Physical Therapy notes written above. Nova Drew PT
--- NOTE | 2020-04-05 14:07 | NUR ---
OCCUPATIONAL THERAPY CO-SIGN I approve of the Occupational Therapy notes written above. Tamiko Morton OTR/L
--- NOTE | 2020-04-05 14:11 | NUR ---
SPEECH PATHOLOGY Patient remains NPO at this time. EGD complete. Physician plan is to discuss treatment options with family. Possible transfer is an option. Clinician will continue to monitor status. TRUONG TEJADA MSCCC-TAG AND LABEL CUTTER
[2020-04-06] VITALS: BP 142/86
--- NOTE | 2020-04-06 03:00 | NUR ---
24 HR chart check completed.
[2020-04-06 07:19] LABS: BASO % 0.6 % (0.0-1.0); EOS # 0.3 10*3/uL (0.0-0.4); HEMATOCRIT 40.7 % (42.0-52.0); LYMPH # 1.3 10*3/uL (1.3-4.4); LYMPH % 19.3 % (27.0-41.0); MEAN CELL VOLUME 92.1 fl (80.0-94.0); MEAN CORPUSCULAR HGB 30.3 pg (27.0-31.0); MEAN CORPUSCULAR HGB CONC 32.9 g/dl (33.0-37.0); MEAN PLATELET VOLUME 9.5 fl (9.6-12.3); MONO # 0.7 10*3/uL (0.1-1.0); MONO % 10.3 % (3.0-9.0); NEUT # 4.4 10*3/uL (2.3-7.9); NEUT % 65.2 % (47.0-73.0); PLATELET COUNT AUTOMATED 194 10*3/uL (130-400); RED BLOOD COUNT 4.42 10*6/uL (4.50-5.90); RED CELL DISTRI WIDTH 12.5 % (0-14.5); WHITE BLOOD COUNT 6.8 10*3/uL (4.8-10.8)
[2020-04-06 07:39] LABS: BUN 5 mg/dl (7-24); CHLORIDE 108 mmol/L (98-107); CREATININE 0.81 mg/dL (0.70-1.30); POTASSIUM 3.3 mmol/L (3.5-5.1); SODIUM 141 mmol/L (136-145)
[2020-04-06 08:00] VITALS: BP 163/77
--- NOTE | 2020-04-06 11:23 | NUR ---
DR. DOYLE IN TO SEE PATIENT AND FAMILY RE: PALLIATIVE CARE VS. OTHER INTERVENTION.
[2020-04-06 12:00] VITALS: BP 161/67
--- NOTE | 2020-04-06 12:34 | NUR ---
RECEIVED A CALL FRON PRAVEENA SEPULVEDA TO COME TALK TO FAMILY ABOUT HOSPICE. PT STATES HE JUST WANTS TO GO HOME AND BE COMFORTABLE. FAMILY HAS QUESTIONS ABOUT HOSPICE. THEY WANT TO TALK WITH SOMEONE. THEY WANT [facility]. CALLED [facility] AND GAVE INFORMATION, THEY WILL PASS ON IT NURSE AND SEE IF SHE CAN COME SEE PT TODAY WHILE FAMILY IS HERE.
--- NOTE | 2020-04-06 13:25 | NUR ---
RECEIVED A RETURN CALL FROM DEXTER OF [facility]. STATES SHE DOES NOT HAVE A NURSE TO SEND TODAY TO TALK WITH FAMILY BUT PROVIDED HER WITH THE SON'S NUMBER AND SHE WILL CALL HIM TO TALK TO HIM ABOUT WHAT QUESTIONS FAMILY HAS.
--- NOTE | 2020-04-06 14:55 | NUR ---
FAMILY SPOKE WITH CASE MANAGEMENT RE: HOSPICE SERVICES. [facility] NURSE TO MEET WITH FAMILY/PATIENT ON WEDNESDAY.
[2020-04-06 16:00] VITALS: BP 134/75
[2020-04-06 20:00] VITALS: BP 147/83
[2020-04-07] VITALS: BP 160/77
[2020-04-07 07:54] VITALS: BP 140/80
[2020-04-07 08:00] VITALS: BP 149/75
[2020-04-07 09:07] LABS: BUN 6 mg/dl (7-24); CHLORIDE 108 mmol/L (98-107); CREATININE 0.72 mg/dL (0.70-1.30); POTASSIUM 3.3 mmol/L (3.5-5.1); SODIUM 141 mmol/L (136-145)
[2020-04-07 12:00] VITALS: BP 134/68
[2020-04-07 16:00] VITALS: BP 102/62; BP 124/75; BP 145/71
[2020-04-07 20:00] VITALS: BP 152/80; BP 164/87
[2020-04-08] VITALS: BP 156/82
--- NOTE | 2020-04-08 07:30 | NUR ---
ASSESSMENT COMPLETE. PT WAS SLEEPING AND WAKENS EASILY. PT STATES HE HAS NO COMPLAINTS AT THIS TIME, HE JUST "WANTS TO GO HOME". I DISCUSSED WITH THE PATIENT HOW [facility] WILL BE IN TODAY AND WILL DISCUSS WITH HIS FAMILY WHAT THE NEXT STEP IS IN HIS PLAN OF CARE. CALL LIGHT WITHIN REACH, WILL CONTTINUE TO MONITOR.
[2020-04-08 08:00] VITALS: BP 145/84
--- NOTE | 2020-04-08 08:58 | NUR ---
AMMONIUM NITRATE CRYSTALLIZER REACHED OUT TO [facility]. THERE IS NOT A SET TIME ON THEM MEETING WITH THE PATIENT TODAY. PER DEXTER SHE IS GOING TO REACH OUT TO HER FISH ROE PROCESSOR TO SEE IF THEY CAN SCHEDULE A TIME FRAME TO BE HERE. ONCE AMMONIUM NITRATE CRYSTALLIZER IS GIVEN A TIME FRAME, AMMONIUM NITRATE CRYSTALLIZER WILL REACH OUT TO THE PATIENTS FAMILY. AMMONIUM NITRATE CRYSTALLIZER WILL FAX CLINICAL INFORMATION TO [facility]. TELE PAVING STONE INSTALLER CAMILA Henriquez APPROVED FOR PATIENTS FAMILY TO MEET WITH HOSPICE.
--- NOTE | 2020-04-08 11:49 | NUR ---
CAR MANAGER SPOKE TO AURE FROM [facility]. SHE IS WAITING ON FAMILY TO DECIDE IF THEY NEED ANY DME BEFORE THE PATIENT WOULD BE DISCHARGED HOME. CAR MANAGER SPOKE TO RN HOSPITALIST COORDINATOR JEIMY ABOUT THIS.
--- NOTE | 2020-04-08 11:55 | NUR ---
PHYSICAL THERAPY Per CM / Nursing notes, patient is scheduled for Hospice consult this date. Per discussion with Supervising Therapist, will hold therapy pending result of Hospice consult. Will continue per POC as appropriate. Kavon Castelan, SERVICE CREW SUPERVISOR
[2020-04-08 12:00] VITALS: BP 152/65
--- NOTE | 2020-04-08 12:09 | NUR ---
OT NOTE Attempted to see pt this A.M. however pt is scheduled for a hospice consult this date. Spoke with OTR and will hold treatment pending results of consult. UBALDO Rodriges/Roland
[2020-04-08] MEDS ORDERED: MORPHINE S10 MG/5 M2 PO (13:25)
[2020-04-08] MEDS ORDERED: ATIVAN ORAL C2 MG/ML PO (13:25)
--- NOTE | 2020-04-08 13:32 | NUR ---
SPEECH PATHOLOGY Patient remains NPO. Hospice has been consulted and will meet with family this date. Will continue to monitor. TRUONG TEJADA MSCCC-BULK PICKER
--- NOTE | 2020-04-08 13:53 | NUR ---
[facility] ASKED THIS INJECTION MOULDING MACHINE OPERATOR TO REACH OUT TO THE PATIENTS SON. INJECTION MOULDING MACHINE OPERATOR SPOKE WITH THE PATIENTS SON. HE ASKED IF THE BIOSPY WAS BACK YET INJECTION MOULDING MACHINE OPERATOR EXPLAINED THERE WAS NO REPORT OF THE TIME WHEN TALKING WITH HIM. PATIENTS SON ASKED ABOUT NPO STATUS INJECTION MOULDING MACHINE OPERATOR EXPLAINED THAT WOULD SPEAK WITH RN. INJECTION MOULDING MACHINE OPERATOR SPOKE WITH RN ABOUT TRANSPORTATION. INJECTION MOULDING MACHINE OPERATOR ARRANGED FOR [facility] TO TRANSPORT THE PATIENT FOR END OF LIFE CARE AT HOME. INJECTION MOULDING MACHINE OPERATOR ARRANGED FOR A 3PM PICKUP. INJECTION MOULDING MACHINE OPERATOR NOTIFIED RN/WC OF THIS. INJECTION MOULDING MACHINE OPERATOR REACHED BACK OUT TO THE SON ARNEL HE IS AWARE OF TRANSPORT TIME. INJECTION MOULDING MACHINE OPERATOR ALSO CONFIRMED WITH PRAVEENA VILLALOBOS THAT THE PATIENT HAS ATAVIN AND MORPHINE SCRIPTS.
--- NOTE | 2020-04-08 14:37 | NUR ---
IN PT ROOM A THIS TIME GOING OVER DISCHARGE. IV IS TAKEN OUT. PT STATES HE HAS NO QUESTIONS AT THIS TIME AND IS READY FOR THE AMBULANCE TO PICK HIM UP. JAUN CADEN WILL BE HERE AT 1500, WILL AWAIT THEIR ARRIVAL
--- NOTE | 2020-04-08 15:08 | NUR ---
JAUN NEGRETE LEAVING AT THIS TIME WITH THE PATIENT
--- NOTE | 2020-04-09 08:07 | NUR ---
PHYSICAL THERAPY CO-SIGN I approve of the Physical Therapy notes written above. Nova Drew PT
--- NOTE | 2020-04-09 08:21 | NUR ---
OCCUPATIONAL THERAPY CO-SIGN I approve of the Occupational Therapy notes written above. MARCOS GALARZA, OTR/L
== END 2020-04-08 15:08 | disposition hospice, home (50) | DRG 374 ==
LOC: ED 20:50 → EDHOLD 04-02 01:07 → 5E 04-02 01:07 → EDHOLD 04-02 01:07 → 5E 04-02 01:57
PROVIDERS: Emergency Medicine; Internal Medicine; Student in an Organized Health Care Education/Training Program; Surgery; ADMIT Internal Medicine
PROC: 0DJ08ZZ Inspection of Upper Intestinal Tract, Via Natural or Artificial Opening Endoscopic (ICD-10-PCS; principal; 2020-04-04)
PROC: 0DB38ZX Excision of Lower Esophagus, Via Natural or Artificial Opening Endoscopic, Diagnostic (ICD-10-PCS; 2020-04-05)
DX: C15.9 Malignant neoplasm of esophagus, unspecified (principal); N17.0 Acute kidney failure with tubular necrosis; K22.2 Esophageal obstruction; R13.10 Dysphagia, unspecified; E86.0 Dehydration; E11.65 Type 2 diabetes mellitus with hyperglycemia; E87.6 Hypokalemia; F41.9 Anxiety disorder, unspecified; K21.9 Gastro-esophageal reflux disease without esophagitis; M19.90 Unspecified osteoarthritis, unspecified site; E78.5 Hyperlipidemia, unspecified; I10 Essential (primary) hypertension; E83.39 Other disorders of phosphorus metabolism; Z53.8 Procedure and treatment not carried out for other reasons; Z95.0 Presence of cardiac pacemaker; Z95.1 Presence of aortocoronary bypass graft; Z96.659 Presence of unspecified artificial knee joint; Z87.891 Personal history of nicotine dependence; Z88.2 Allergy status to sulfonamides; Z79.82 Long term (current) use of aspirin; Z79.899 Other long term (current) drug therapy; Z79.84 Long term (current) use of oral hypoglycemic drugs; Z03.818 Encounter for observation for suspected exposure to other biological agents ruled out

== ENCOUNTER 2020-05-03 02:41 | Emergency (ER) | payer OTHER ==
[~2020-05-03 02:41] MED LIST changes: +ATIVAN ORAL C2 MG/ML PO; +B121000 MCG/1 IM; +CARDURA1 M1 PO; +GLUCOPHAGE500 M1 PO; +MORPHINE S10 MG/5 M2 PO; +PROSCAR5 M1 PO; +PROTONIX40 MG PO
[2020-05-03 02:45] VITALS: BP 130/78
== END 2020-05-03 04:45 | disposition other institution (70) ==
LOC: ED 02:41
DX: S01.112A Laceration without foreign body of left eyelid and periocular area, initial encounter (principal); Z87.891 Personal history of nicotine dependence; W18.39XA Other fall on same level, initial encounter; Y93.89 Activity, other specified; Y92.121 Bathroom in nursing home as the place of occurrence of the external cause; Y99.8 Other external cause status